=== PATIENT | male | born 1995 | race Two or more races ===

== ENCOUNTER 2025-02-08 15:03 | Emergency (ER) | payer OTHER ==
[~2025-02-08] VITALS: Ht 172.7 cm; Wt 64.4 kg
[2025-02-08] MEDS ORDERED: WELLBUTRIN SR100 MG PO (15:42)
[2025-02-08] MEDS ORDERED: METHYLPREDNISOLONE SOD SUCC 125 MG VIAL IM STA (17:18)
== END 2025-02-08 17:43 | disposition home or self-care (01) ==
LOC: ER 15:05
DX: T20.07XA Burn of unspecified degree of neck, initial encounter (principal); X08.8XXA Exposure to other specified smoke, fire and flames, initial encounter; Y93.G3 Activity, cooking and baking; Y92.010 Kitchen of single-family (private) house as the place of occurrence of the external cause; Y99.9 Unspecified external cause status